=== PATIENT | female | born 1960 | race Caucasian/White ===

== ENCOUNTER 2017-10-09 13:12 | Day surgery (SDC) | payer OTHER, MEDICARE ==
[~2017-10-09] VITALS: Ht 162.6 cm; Wt 73.6 kg
[~2017-10-09 13:12] MED LIST: ASPI325 PO; ASPI81CH PO; BIOTIN1 MG; CELE200 PO; CITA20 PO; CYCL10 PO; Cleocin HCl300 MG PO; HYDMOR2; HYDMOR4 PO; KETO10 PO; LEVSOD100; LEVSOD50 PO; LORA.5; LORA1 PO; MORP15ER PO; NAPR220 PO; NITR.1TP TOP; OXYACE5T PO; PRAV20 PO; Pravachol80 MG; RXOXYACE PO; SPRIX1 EACH; TOPI50
== END 2017-10-09 15:44 | disposition home or self-care (01) ==
LOC: ORSCSDS 13:12
PROVIDERS: Internal Medicine Gastroenterology
PROC: 0D758ZZ Dilation of Esophagus, Via Natural or Artificial Opening Endoscopic (ICD-10-PCS; principal; 2017-10-09 14:15)
PROC: 0DB98ZX Excision of Duodenum, Via Natural or Artificial Opening Endoscopic, Diagnostic (ICD-10-PCS; principal; 2017-10-09 14:15)
PROC: 0DB68ZX Excision of Stomach, Via Natural or Artificial Opening Endoscopic, Diagnostic (ICD-10-PCS; principal; 2017-10-09 14:15)
DX: R11.10 Vomiting, unspecified (principal); K44.9 Diaphragmatic hernia without obstruction or gangrene; K22.2 Esophageal obstruction; K21.9 Gastro-esophageal reflux disease without esophagitis; K20.9 Esophagitis, unspecified; R52 Pain, unspecified; I10 Essential (primary) hypertension; Z86.010 Personal history of colon polyps; F17.210 Nicotine dependence, cigarettes, uncomplicated; E78.5 Hyperlipidemia, unspecified; E07.9 Disorder of thyroid, unspecified; Z79.899 Other long term (current) drug therapy
CPT/HCPCS: 88305; 88342; J7120

== ENCOUNTER → 2017-11-18 | Outpatient (CLI) | payer OTHER, MEDICARE ==
[2017-11-20 15:09] LABS: HPV 16 Negative (Negative); HPV 18 Negative (Negative); HPV OTHER HR TYPES Negative (Negative)
== END | disposition home or self-care (01) ==
LOC: LAB SHORT 16:44 → LAB 16:44
PROVIDERS: Nurse Practitioner Women's Health
DX: Z12.72 Encounter for screening for malignant neoplasm of vagina (principal); N89.8 Other specified noninflammatory disorders of vagina
CPT/HCPCS: 87070; 87205; 87624; G0123

== ENCOUNTER → 2018-12-02 | Outpatient (CLI) | payer OTHER, MEDICARE ==
[2018-12-03 15:07] LABS: HPV 16 Negative (Negative); HPV 18 Negative (Negative); HPV OTHER HR TYPES Negative (Negative)
== END | disposition home or self-care (01) ==
LOC: LAB 12:26 → LAB SHORT 12:26
PROVIDERS: Nurse Practitioner Women's Health
DX: Z12.72 Encounter for screening for malignant neoplasm of vagina (principal); Z91.89 Other specified personal risk factors, not elsewhere classified
CPT/HCPCS: 87624; G0123

== ENCOUNTER → 2020-05-03 | Outpatient (CLI) | payer OTHER, MEDICARE ==
[2020-05-03 16:43] LABS: Source, Urine Clean Catch
[2020-05-03 17:57] LABS: Appearance, Urine Hazy (Clear); Bilirubin, Urine Neg (Neg); Blood, Urine Neg (Neg); Color, Urine Yellow (P-Yellow); Glucose Qualitative, Urine Neg (Neg); Ketones, Urine Neg (Neg); Leukocyte Esterase, Urine Neg (Neg); Nitrite, Urine Pos (Neg); Protein, Urine Neg (Neg); Specific Gravity, Urine 1.015 (1.003-1.022); Urobilinogen, Urine NORM (Normal)
[2020-05-03 19:04] LABS: Bacteria Many /hpf; Red Blood Cells, Urine 0-2 /hpf (0-2); Squamous Epithelial Cells Few /hpf (Few)
== END ==
LOC: LAB SHORT 16:28 → LAB 16:28
PROVIDERS: Family Medicine
DX: R35.0 Frequency of micturition (principal)
CPT/HCPCS: 81001; 87077; 87086; 87186

== ENCOUNTER → 2020-05-19 | Outpatient (CLI) | payer OTHER, MEDICARE ==
[2020-05-19 11:27] LABS: Source, Urine Clean Catch
[2020-05-19 13:50] LABS: Appearance, Urine Clear (Clear); Bilirubin, Urine Neg (Neg); Blood, Urine Neg (Neg); Color, Urine Yellow (P-Yellow); Glucose Qualitative, Urine Neg (Neg); Ketones, Urine Neg (Neg); Leukocyte Esterase, Urine Neg (Neg); Nitrite, Urine Neg (Neg); Protein, Urine Neg (Neg); Specific Gravity, Urine 1.015 (1.003-1.022); Urobilinogen, Urine NORM (Normal); pH, Urine 6.5 (5.0-8.0)
== END | disposition home or self-care (01) ==
LOC: LAB 11:24 → LAB SHORT 11:24
PROVIDERS: Family Medicine
DX: R30.9 Painful micturition, unspecified (principal)
CPT/HCPCS: 81003

== ENCOUNTER 2021-12-27 08:37 | Day surgery (SDC) | payer MEDICARE, BC ==
[~2021-12-27] VITALS: Ht 162.6 cm; Wt 66.0 kg
[2021-12-27] MEDS ORDERED: ROSU5 (09:32)
== END 2021-12-27 10:52 | disposition home or self-care (01) ==
LOC: ORSCSDS 08:37
PROVIDERS: Surgery
PROC: 0DJD8ZZ Inspection of Lower Intestinal Tract, Via Natural or Artificial Opening Endoscopic (ICD-10-PCS; principal; 2021-12-27 09:45)
DX: Z12.11 Encounter for screening for malignant neoplasm of colon (principal); Z80.0 Family history of malignant neoplasm of digestive organs; E03.9 Hypothyroidism, unspecified; F17.210 Nicotine dependence, cigarettes, uncomplicated; Z85.43 Personal history of malignant neoplasm of ovary; Z79.82 Long term (current) use of aspirin
CPT/HCPCS: J2704; J7120

== ENCOUNTER 2022-06-18 07:15 | Day surgery (SDC) | payer MEDICARE, BC ==
[~2022-06-18] VITALS: Ht 162.6 cm; Wt 66.2 kg
[~2022-06-18 07:15] MED LIST changes: +Betamethasone V15 GM TOP; +LEVSOD112 PO; +ROSU10TA PO; +ROSU5; +TOPI100 PO; +Vitamin B Comple1 EA PO; +Vitamin D1000 UNI1 PO
[2022-06-18] MEDS ORDERED: AVASTIN PO (07:39)
--- NOTE | 2022-06-18 09:28 | NUR ---
PT BACK TO RECOVERY ROOM VIA RECLINER AFTER PROCEDURE. AWAKE AND ALERT, DENIES ANY PAIN OR DISCOMFORT. VSS, RIGHT CHEST AND JUGULAR SITES ARE C/D/I, NO BLEEDING OR SWELLING. CALL LIGHT IN REACH
--- NOTE | 2022-06-18 09:49 | NUR ---
PT EATING BREAKFAST, CONTINUES TO DENY ANY DISCOMFORT. VSS, CALL LIGHT IN REACH.
--- NOTE | 2022-06-18 10:30 | NUR ---
IV DC'D, CATH INTACT. PT GIVEN DC INSTRUCTIONS, VERBALIZED UNDERSTANDING. WILL FOLLOW UP WITH ONCOLOGIST ON FRIDAY PLANNED. RIGHT CHEST AND JUGULAR SITES CLEAN AND DRY, NO SWELLING NOTED AT EITHER SITE. SMALL AMOUNT OF BLOOD NOTED UNDER TEGADERM DRESSING DIRECTLY AT PORT SITE, DOES NOT APPEAR TO BE ACTIVELY BLEEDING. PT AND SPOUSE INSTRUCTED TO WATCH THE AREA AND CALL DR ABRAMS OFFICE IF ADDITIONAL BLEEDING OCCURS.
--- NOTE | 2022-06-18 10:30 | NUR ---
PT OUT TO CAR VIA WHEELCHAIR, ACCOMPANIED BY SPOUSE
== END 2022-06-18 10:45 | disposition home or self-care (01) ==
LOC: MHTC 07:15
DX: C56.1 Malignant neoplasm of right ovary (principal); F41.9 Anxiety disorder, unspecified; F32.A Depression, unspecified; E78.5 Hyperlipidemia, unspecified; Z88.8 Allergy status to other drugs, medicaments and biological substances
CPT/HCPCS: 36561; 76937; 99152; 99153; C1769; C1788; C1894; J0690; J1642; J1644; J2250; J3010; J7030; J7050

== ENCOUNTER → 2023-03-25 | Outpatient (CLI) | payer MEDICARE, BC ==
[~2023-03-25] MED LIST changes: +AVASTIN PO
[2023-03-26 10:59] LABS: Appearance, Urine Hazy (Clear); Bilirubin, Urine Neg (Neg); Blood, Urine Neg (Neg); Color, Urine Yellow (P-Yellow); Glucose Qualitative, Urine Neg (Neg); Ketones, Urine Neg (Neg); Leukocyte Esterase, Urine Neg (Neg); Nitrite, Urine Neg (Neg); Protein, Urine 1+ (Neg); Specific Gravity, Urine 1.025 (1.003-1.022); Urobilinogen, Urine NORM (Normal)
[2023-03-26 11:13] LABS: Bacteria Few /hpf; Hyaline Casts 0-2 /lpf (0-2); Mucus Heavy (0-Heavy); Red Blood Cells, Urine 0-2 /hpf (0-2); Squamous Epithelial Cells Few /hpf (Few); White Blood Cells, Urine 0-2 /hpf (0-5)
[2023-03-26 11:14] LABS: Amorphous Light (0-Heavy); Calcium Oxalate Crystals Many /hpf
== END ==
LOC: LAB SHORT 15:30 → LAB 15:30 → LAB SHORT 03-26 10:39
PROVIDERS: Nurse Practitioner Adult Health
DX: C56.9 Malignant neoplasm of unspecified ovary (principal)
CPT/HCPCS: 81001

== ENCOUNTER 2024-02-27 14:16 | Emergency (ER) | payer MEDICARE, BC ==
[~2024-02-27] VITALS: Ht 162.6 cm; Wt 52.2 kg
[~2024-02-27 14:16] MED LIST changes: +AMOCLA875 PO
[2024-02-27] MEDS ORDERED: Ondansetron HCl 2 MG / ML 2ML Vial IV ONE (15:35)
[2024-02-27 15:44] LABS: BASOPHILS ABSOLUTE AUTO 0.06 K/mm3 (0.00-0.23); BASOPHILS PERCENT AUTO 1 % (0-2); EOSINOPHILS ABSOLUTE AUTO 0.03 K/mm3 (0.00-0.68); EOSINOPHILS PERCENT AUTO 0 % (0-6); Hematocrit 39.7 % (33.0-51.0); Hemoglobin 13.7 g/dL (11.5-16.0); IMMATURE GRAN ABSOLUTE AUTO 0.06 K/mm3 (0.00-0.10); IMMATURE GRAN PERCENT AUTO 1 % (0-1); LYMPHOCYTES ABSOLUTE AUTO 1.27 K/mm3 (0.84-5.20); LYMPHOCYTES PERCENT AUTO 13 % (21-46); MONOCYTES PERCENT AUTO 4 % (4-13); Mean Corpuscular HGB 34.3 pg (26.0-34.0); Mean Corpuscular HGB Conc 34.5 g/dL (31.5-36.5); Mean Corpuscular Volume 100 fL (80-100); NEUTROPHILS PERCENT AUTO 82 % (41-73); Platelet Count 484 K/mm3 (150-400); RDW Standard Deviation 51.2 fL (35.1-46.3); Red Blood Cell Count 3.99 M/mm3 (3.80-5.20); White Blood Cell Count 9.92 K/mm3 (4.00-11.30)
[2024-02-27 16:07] VITALS: BP 118/99
[2024-02-27 16:16] LABS: Albumin, Blood 2.8 g/dL (3.4-5.0); Albumin/Globulin Ratio 0.6 (0.8-1.8); Bilirubin, Total 0.5 mg/dL (0.1-1.0); Bun/Creatinine Ratio 33.3 (12.0-20.0); Calcium, Blood 9.3 mg/dL (8.5-10.1); Creatinine, Blood 0.6 mg/dL (0.40-1.00); Globulin, Blood 4.6 g/dL (2.2-4.0); Potassium, Blood 3.7 mmol/L (3.5-5.5); Total Protein, Blood 7.4 g/dL (6.4-8.2)
[2024-02-27] MEDS ORDERED: NS 1,000 ML IV SCH (18:20)
[2024-02-27] MEDS ORDERED: ONDA4ODT MM (19:21)
[2024-02-27] MEDS ORDERED: PROM12.5S PR (19:21)
[2024-02-27] MEDS ORDERED: RX Prepack 2 Tabs Ondansetron ODT 4MG UD ONE (19:25)
== END 2024-02-28 19:48 | disposition home or self-care (01) ==
LOC: ER 14:16
PROVIDERS: Physician Assistant
DX: R11.2 Nausea with vomiting, unspecified (principal); T45.1X5A Adverse effect of antineoplastic and immunosuppressive drugs, initial encounter; E86.1 Hypovolemia; E03.9 Hypothyroidism, unspecified; E78.5 Hyperlipidemia, unspecified; F17.200 Nicotine dependence, unspecified, uncomplicated; Z79.899 Other long term (current) drug therapy; Z79.82 Long term (current) use of aspirin; Z91.048 Other nonmedicinal substance allergy status; Z88.8 Allergy status to other drugs, medicaments and biological substances
CPT/HCPCS: 80053; 83690; 85025; 96374; 99283-25; A9270; J2405; J7030

== ENCOUNTER 2024-04-25 19:16 | Emergency (ER) | payer MEDICARE, BC ==
[~2024-04-25] VITALS: Ht 162.6 cm; Wt 44.9 kg
[~2024-04-25 19:16] MED LIST changes: +ONDA4ODT MM; +PROM12.5S PR
[2024-04-25] MEDS ORDERED: NS 1,000 ML IV SCH ×2 (19:40→20:55)
[2024-04-25 20:06] LABS: BASOPHILS ABSOLUTE AUTO 0.03 K/mm3 (0.00-0.23); BASOPHILS PERCENT AUTO 0 % (0-2); EOSINOPHILS ABSOLUTE AUTO 0.01 K/mm3 (0.00-0.68); EOSINOPHILS PERCENT AUTO 0 % (0-6); Hemoglobin 13.4 g/dL (11.5-16.0); IMMATURE GRAN ABSOLUTE AUTO 0.07 K/mm3 (0.00-0.10); IMMATURE GRAN PERCENT AUTO 1 % (0-1); LYMPHOCYTES PERCENT AUTO 9 % (21-46); MONOCYTES ABSOLUTE AUTO 0.95 K/mm3 (0.16-1.47); MONOCYTES PERCENT AUTO 8 % (4-13); Mean Corpuscular HGB 33.7 pg (26.0-34.0); Mean Corpuscular HGB Conc 34.4 g/dL (31.5-36.5); Mean Corpuscular Volume 98 fL (80-100); Mean Platelet Volume 9.3 fL (9.1-12.4); NEUTROPHILS ABSOLUTE AUTO 10.26 K/mm3 (1.96-9.15); NEUTROPHILS PERCENT AUTO 83 % (41-73); Platelet Count 628 K/mm3 (150-400); RDW Coefficient Variation 15.8 % (11.7-14.2); RDW Standard Deviation 57.3 fL (35.1-46.3); Red Blood Cell Count 3.98 M/mm3 (3.80-5.20); White Blood Cell Count 12.42 K/mm3 (4.00-11.30)
[2024-04-25 20:41] LABS: Albumin, Blood 1.8 g/dL (3.4-5.0); Albumin/Globulin Ratio 0.4 (0.8-1.8); Bilirubin, Total 0.5 mg/dL (0.1-1.0); Bun/Creatinine Ratio 42.9 (12.0-20.0); Calcium, Blood 8.3 mg/dL (8.5-10.1); Creatinine, Blood 0.65 mg/dL (0.40-1.00); Globulin, Blood 4.2 g/dL (2.2-4.0); Potassium, Blood 4.9 mmol/L (3.5-5.5)
[2024-04-25] MEDS ORDERED: Ondansetron HCl 2 MG / ML 2ML Vial IV ONE (20:55)
[2024-04-25] MEDS ORDERED: DiphenhydrAMINE HCl 50 MG/ML 1ML Vial IV ONE (20:55)
[2024-04-25] MEDS ORDERED: Metoclopramide HCl 5MG / ML 2ML Vial IV ONE (20:55)
[2024-04-25] MEDS ORDERED: ONDA4ODT MM (23:29)
[2024-04-26 00:29] VITALS: BP 133/86
== END 2024-04-26 00:28 | disposition home or self-care (01) ==
LOC: ER 19:16
PROVIDERS: Physician Assistant
DX: R11.2 Nausea with vomiting, unspecified (principal); E03.9 Hypothyroidism, unspecified; E78.5 Hyperlipidemia, unspecified; C56.9 Malignant neoplasm of unspecified ovary; C22.9 Malignant neoplasm of liver, not specified as primary or secondary; F17.210 Nicotine dependence, cigarettes, uncomplicated; Z88.1 Allergy status to other antibiotic agents; Z91.048 Other nonmedicinal substance allergy status; Z79.890 Hormone replacement therapy; Z79.899 Other long term (current) drug therapy; Z79.82 Long term (current) use of aspirin
CPT/HCPCS: 80053; 85025; 96374; 96375; 99284-25; J1200; J2405; J2765; J7030